=== PATIENT | male | born 1940 | race Caucasian/White ===

== ENCOUNTER 2016-11-23 14:42 | Inpatient (IN) | payer MEDICARE, OTHER ==
--- NOTE | ~2016-11-23 | DS ---
Discharge Summary [facility] [address] [facility] [place] [place]. [address] NAME: JOSÉ MIGUEL VILLALTA SR : 42 STATUS : DIS IN PAT#: [id number] AGE: 76 ADM/REG DATE : 11/23/16 MR#: [id number] REPORT SERV DATE: 11/26/16 DICTATED BY: RANDI RUVALCABA DATE: 11/25/16 REPORT STATUS : Draft TRANSCRIBED BY: MODL DATE: 11/25/16 ADMISSION DATE: 11/23/2016 DISCHARGE DATE: 11/25/2016 CONDITION ON DISCHARGE: Stable. DISPOSITION: Discharged to home. ADVICE ON DISCHARGE: To follow up with his industrial machine system technician, Dr. Dougherty, within the next two to three weeks, which the patient agrees to do. DIAGNOSES ON DISCHARGE: 1. Acute exacerbation of systolic and diastolic heart failure - resolved. 2. 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 3. Acute bronchitis - resolved - the patient will be taking three more days of azithromycin to clear this up. 4. Chronic obstructive pulmonary disease. Other diagnoses that are also stable at this time include: 1. A history of stroke that left the patient with no significant residual deficits. 2. History of diabetes, which is fairly well controlled on his home medications. He takes at least three oral antidiabetic medications at home. 3. Chronic kidney disease, stage III, which is stable at this time with a baseline creatinine of about 1.6. 4. Hypercholesterolemia, which is stable. 5. Coronary artery disease, status post coronary artery bypass graft - stable. 6. Hypertension, that is stable. BRIEF HOSPITAL COURSE: Mr. José Miguel Villalta is a 76-year-old male patient who was admitted with signs and symptoms as outlined in physical exam. Essentially, he was admitted with shortness of breath and admitted with a diagnosis of acute systolic congestive heart failure and also acute bronchitis/acute exacerbation of COPD. At this time, I would lean more towards the diagnosis of acute bronchitis. He was admitted with IV antibiotics and IV diuretic therapy, and with supportive and symptomatic care and above therapy, he significantly improved. He was started on diuretics and his shortness of breath improved tremendously. On the day of discharge, he is able to ambulate without shortness of breath or without any chest pain. He feels great and he wishes to go home. However, he is a candidate for long-term diuretic therapy and probably diuretics on a regular basis despite his kidney function. This is because he has been admitted with acute exacerbation of systolic heart failure multiple times now. Hence, he will be going home on Bumex, which I have started him as a new medication 1 mg in the morning and 0.5 mg at night or 1 mg p.o. q.a.m. and 0.5 mg p.o. q.p.m. I also have him on potassium. Discharge Summary [address] [place]. [address] NAME: JOSÉ MIGUEL VILLALTA : 42 STATUS : DIS IN PAT#: [id number] AGE: 76 ADM/REG DATE : 11/23/16 MR#: [id number] REPORT SERV DATE: 11/26/16 DICTATED BY: RANDI RUVALCABA DATE: 11/25/16 REPORT STATUS : Draft TRANSCRIBED BY: MICHAEL DATE: 11/25/16 He will be going home on the following medications. He will finish his current course of azithromycin by taking 250 mg once a day for the next three days and stop for the acute bronchitis. He will continue his Actos 30 mg once a day, Januvia 100 mg once a day, and Amaryl 8 mg p.o. once a day also as he has always been taking for his diabetes. He will continue taking aspirin 81 mg once a day and Coreg 3.125 mg p.o. twice a day, as always. He will continue taking Neurontin as before. He will also continue pravastatin 40 mg once a day as before. The new medication will be Bumex 1 mg in the morning and 0.5 mg at night and also potassium 10 mEq p.o. twice a day. I do have the following labs upon discharge on this patient. Most recently, his CBC shows a WBC count of 9.3, hemoglobin 11, hematocrit of 33.4, and platelet count of 183. His electrolyte profile shows sodium 140, potassium 4.1, BUN is 35, and creatinine is 1.8, which is pretty much his baseline. His brain natriuretic peptide is 1125 today. It was even higher than that, and on 11/23/2016, his admission BNP was 2131. Hence, this is a significant improvement for him. His blood cultures have come back negative and his chest x-ray has come back with no acute infiltrate. His urinalysis is normal. Echocardiogram as above shows ejection fraction of 40%, reflecting chronic systolic and diastolic heart failure. Lactate is 1.5 at this time. We did order a hemoglobin A1c on this gentleman and that has come back at 8.2, reflecting diabetes that is not under great control. The patient is aware of this. The patient is also aware of a low-salt diet. He states that he will work on this. He is advised to follow up with Dr. Dougherty, his industrial machine system technician, in the next two to three weeks for adjustment of his diuretics if need be. He can also be referred to kidney specialist or renal specialist or ward aide as an outpatient if his creatinine continues to climb later as an outpatient, but right now, he seems to be stable with chronic kidney disease, stage III with a creatinine level of about 1.7 to 1.8. He feels fine, and hence, he is being discharged today. I spent about 40 minutes in coordinating discharge care of this patient including face-to- face encounter and summarizing this discharge. RRA/MODL Randi Ruvalcaba M.D. / [id number] CC: Dai Campbell M.D.
--- NOTE | ~2016-11-23 | HP ---
History And Physical [facility] [id number] [place]. [address] NAME: ROHAN VILLALTA SR : 42 STATUS : ADM IN PAT#: [id number] AGE: 76 ADM/REG DATE : 11/23/16 MR#: [id number] REPORT SERV DATE: 11/24/16 DICTATED BY: REENA PERRY DATE: 11/23/16 REPORT STATUS : Draft TRANSCRIBED BY: MODL DATE: 11/23/16 DATE OF ADMISSION: 11/23/2016 CHIEF COMPLAINT: A 76-year-old male presenting with shortness of breath. HISTORY OF PRESENT ILLNESS: The patient's history was obtained through careful interview with patient and , coupled with review of [facility] and [facility] medical records. The patient states that for "a couple days" he has had increasing shortness of breath that has progressively become debilitating. He describes it as dyspnea on exertion and denies any orthopnea. He has felt extremely sleepy, fatigued, "worn out." Today, he tried to go to work but found that he could not even do his job and had to go home early. He describes a cough that is described as dry and nonproductive. It is associated with the bilateral chest discomfort at the base of his lungs, pleuritic in nature, sharp, exacerbated by coughing 2 to 3/10 severity. He describes increasing lower extremity edema, right greater than left which is typical for him. He has also noticed increasing bloating, swelling, and gassy feeling in his abdomen but without much discomfort. He states that the day prior to admission he went to see his primary care physician, was given a dose of steroids, Keflex, and an inhaler. Initially improved by that evening but then today just had worsening of his symptoms. Ever since starting the steroids, the patient has had uncontrolled blood sugars. His blood sugar this morning was over 300, where it is typically in the 100 range. No nausea or vomiting. No diarrhea. He has had fevers, chills, lightheadedness. No confusion. REVIEW OF SYSTEMS: Otherwise, a 14-point review of systems was obtained and was negative. PAST MEDICAL HISTORY: 1. Stroke. 2. Diabetes. 3. Coronary artery disease, status post CABG, seen by Dr. Solares. 4. Systolic congestive heart failure, ejection fraction 40%. 5. Elevated cholesterol. 6. Hypertension. 7. Chronic kidney disease, stage 3. Baseline creatinine of 1.3 to 1.6. PAST SURGICAL HISTORY: CABG in 2002. History And Physical [address] [address] NAME: ROHAN VILLALTA SR : 42 STATUS : ADM IN PAT#: [id number] AGE: 76 ADM/REG DATE : 11/23/16 MR#: [id number] REPORT SERV DATE: 11/24/16 DICTATED BY: REENA PERRY DATE: 11/23/16 REPORT STATUS : Draft TRANSCRIBED BY: MICHAEL DATE: 11/23/16 ALLERGIES: LYSOL AND PERFUME. SOCIAL HISTORY: Quit smoking in 2002. Does not drink any alcohol. He has been to his for 55 years. They live in [place], [place]. They have two children who live locally, two granddaughters, four grandsons, four great granddaughters. 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 FAMILY HISTORY: Diabetes and heart disease. CURRENT MEDICATIONS: Include aspirin 81 mg p.o. daily; Lasix, alternating doses of 20 and 40 mg every other day; Neurontin 900 mg p.o. t.i.d.; Amaryl 8 mg p.o. daily; multivitamin daily; Actos 30 mg at bedtime; potassium 20 mEq p.o. daily, Pravachol 40 mg p.o. daily; and Januvia 10 mg p.o. daily. PHYSICAL EXAMINATION: VITAL SIGNS: Temperature 98.4, pulse 82, blood pressure 106/55, respiratory rate 20, and O2 saturation 97% on room air. GENERAL: A pleasant, cooperative male. No significant distress, just very uncomfortable. HEENT: Pupils equal, round, and reactive to light. No conjunctival pallor. No scleral icterus. Nares are patent. Oropharynx is clear of obstruction. Moist mucous membranes. NECK: Trachea midline. No thyromegaly. LYMPH: No cervical lymphadenopathy. No supraclavicular lymphadenopathy. RESPIRATORY: The patient has dense wet rales on examination that predominate. They extend about the mid lung symmetrically. No dullness to percussion to suggest effusion. The patient also has scattered expiratory wheezes and upper respiratory rhonchi. I do appreciate what I believe is focal egophony in the left lower lung in particular. The patient has a labored respiratory effort. CARDIOVASCULAR: Regular rate and rhythm. No murmurs, rubs, or gallops. The patient does have pitting lower extremity edema. The right leg is slightly more than the left. ABDOMEN: Somewhat distended. No tympanic resonance on percussion. Nontender throughout though. No hepatosplenomegaly. DERMATOLOGICAL: Warm and dry extremities. No pallor. No cyanosis. PSYCHIATRIC: Normal affect. Good mood. Alert and oriented x3. LABORATORY DATA: White blood cell count 13.9, hemoglobin 11, hematocrit 34, and platelets 188. Sodium 137, potassium 5.1, chloride 99, bicarb 27, BUN 31, creatinine 2.07 from baseline creatinine of 1.3, glucose 401. Brain natriuretic peptide 2131. Troponin 0.07. INR 1.3. STUDIES: 1. Chest x-ray by my own evaluation shows a left lower lung patchy infiltrate of the right middle lung compared to old x-ray. 2. EKG by my own evaluation shows sinus rhythm, right bundle-branch block, premature ventricular contractions. History And Physical [address] [address] NAME: ROHAN VILLALTA : 42 STATUS : ADM IN [facility]#: [id number] AGE: 76 ADM/REG DATE : 11/23/16 MR#: [id number] REPORT SERV DATE: 11/24/16 DICTATED BY: REENA PERRY DATE: 11/23/16 REPORT STATUS : Draft TRANSCRIBED BY: MICHAEL DATE: 11/23/16 ASSESSMENT AND PLAN: 1. Systolic congestive heart failure exacerbation with elevated brain natriuretic peptide and evidence of volume overload. Ejection fraction of 40%. We will recheck an echocardiogram though. Place on IV diuretic. Place on an MARINE inhibitor and Coreg as tolerated but noted that patient has borderline hypertension. We will write parameters for these medications and monitor whether he is able to tolerate them. 2. Pneumonia, presumptive diagnosis. Place on IV antibiotics. Check blood cultures. 3. Chronic obstructive pulmonary disease exacerbation. Quit smoking in [address]. [address] on p.o. steroids and DuoNeb nebulizers. 4. Uncontrolled diabetes exacerbated by steroids. Try Levemir and sliding scale insulin while on steroids. 5. Acute kidney injury on chronic kidney disease, stage III. Check urinalysis. Check postvoid residual. Monitor closely. KPL/MODL Reena Perry M.D. / [id number] CC: MD Magdaleno Combs M.D.
[~2016-11-23 14:42] MED LIST: AMARYL4 PO; CENTRUM PO; CORDARONE PO; COREG12 PO; COREG25 PO; FLONASE NAS; FLOVENT DISK250 MCG INH; FORTAMET1000 MG PO; GLUCPH PO; GLUCXL10 PO; HALF81 PO; JANUVIA100 MG PO; JANUVIA50 PO; KLOR-CON 1010 MEQ PO; L20 PO; L40 PO; MULTIPLE VIT PO; MYLANTA PO; NEUR300 PO; PACERONE200 MG PO; PRAVACHOL40 MG PO; PROAIR HFA INH; REFRESH OPH
[2016-11-23 15:10] LABS: BASOPHILS 0 %; EOSINOPHILS 0 %; HEMATOCRIT 33.8 % (40.0-51.0); HEMOGLOBIN 11.1 g/dL (13.6-17.8); IMMATURE GRANULOCYTES 0.2 %; IMMATURE GRANULOCYTES ABSOLUTE 0.03 10/3/uL (0.0-0.11); LYMPHOCYTES 5.2 %; LYMPHOCYTES ABSOLUTE 0.72 10/3/uL (0.67-4.30); MEAN CORPUS HGB CONC 32.8 g/dL (32.0-36.0); MEAN CORPUSCULAR VOLUME 85.1 fL (80-100); MEAN PLATELET VOLUME 10.9 fL (9.2-13.0); MONOCYTES 2.5 %; MONOCYTES ABSOLUTE 0.35 10/3/uL (0.21-1.20); NEUTROPHILS 92.1 %; NEUTROPHILS ABSOLUTE 12.83 10/3/uL (2.02-8.40); PLATELET COUNT 188 10/3/uL (150-400); RBC DISTRIBUTION WIDTH 15.5 % (12.0-16.0); RED CELL COUNT 3.97 10/6/uL (4.7-6.1)
[2016-11-23 15:11] LABS: ER CBC TAT 0 Hrs 10 Mins; MANUAL DIFF NO %; WHITE BLOOD CELLS 13.9 10/3/uL (4.5-10.5)
[2016-11-23 15:25] LABS: CALCIUM, SERUM 8.7 MG/DL (8.5-10.4); CHLORIDE, SERUM 99 MMOL/L (96-112); CO2 (CARBON DIOXIDE) 27 MMOL/L (24-34); POTASSIUM, SERUM 5.1 MMOL/L (3.5-5.3); SODIUM, SERUM 137 MMOL/L (135-148)
[2016-11-23 15:26] LABS: INTERNATIONAL NORMAL RATI 1.3 UNITS (-); PARTIAL THROMBO TIME 28.6 SEC (22.5-37.2)
[2016-11-23 15:27] LABS: BUN (BLOOD UREA NITROGEN) 31 MG/DL (6-23); CHEST PAIN PROFILE TAT 0 Hrs 26 Mins; CREATININE 2.07 MG/DL (0.70-1.30); GFR AFRICAN AMERICAN 35 ML/MIN (>=60); GFR NON AFRICAN AMERICAN 31 ML/MIN (>=60); GLUCOSE, SERUM 401 MG/DL (60-99); TROPONIN I 0.05 NG/ML (<0.05)
[2016-11-23] MEDS ORDERED: ASAB PO (18:17)
[2016-11-23] MEDS ORDERED: MULTIVITAMI1 PO (18:17)
[2016-11-23] MEDS ORDERED: NEUR300 PO (18:20)
[2016-11-23] MEDS ORDERED: L40 PO (18:21)
[2016-11-23] MEDS ORDERED: L20 PO (18:21)
[2016-11-23] MEDS ORDERED: AMARYL4 PO (18:22)
[2016-11-23] MEDS ORDERED: K-TABS10 MEQ PO (18:22)
[2016-11-23] MEDS ORDERED: JANUVIA100 MG PO (18:22)
[2016-11-23] MEDS ORDERED: ACTOS30 PO (18:22)
[2016-11-23] MEDS ORDERED: PRAVACHOL40 MG PO (18:23)
[2016-11-24 05:04] LABS: BASOPHILS 0 %; EOSINOPHILS 0 %; HEMOGLOBIN 10.6 g/dL (13.6-17.8); IMMATURE GRANULOCYTES 0.1 %; IMMATURE GRANULOCYTES ABSOLUTE 0.01 10/3/uL (0.0-0.11); LYMPHOCYTES 5.8 %; MEAN CORPUS HGB CONC 33.1 g/dL (32.0-36.0); MEAN CORPUSCULAR VOLUME 84.7 fL (80-100); MEAN PLATELET VOLUME 11.2 fL (9.2-13.0); MONOCYTES 4.8 %; NEUTROPHILS 89.3 %; NEUTROPHILS ABSOLUTE 9.24 10/3/uL (2.02-8.40); PLATELET COUNT 185 10/3/uL (150-400); RBC DISTRIBUTION WIDTH 15.8 % (12.0-16.0); RED CELL COUNT 3.78 10/6/uL (4.7-6.1); WHITE BLOOD CELLS 10.4 10/3/uL (4.5-10.5)
[2016-11-24 05:10] LABS: MANUAL DIFF NO %
[2016-11-24 05:25] LABS: INTERNATIONAL NORMAL RATI 1.3 UNITS (-); PARTIAL THROMBO TIME 28.5 SEC (22.5-37.2); PROTIME (NOT ORD) 15.6 SEC (12.0-14.5)
[2016-11-24 05:27] LABS: A/G RATIO 1.1 (0.7-1.9); ALBUMIN 3.6 G/DL (3.5-5.0); ALKALINE PHOSPHATASE 61 U/L (45-117); BUN (BLOOD UREA NITROGEN) 30 MG/DL (6-23); CALCIUM, SERUM 8.4 MG/DL (8.5-10.4); CHLORIDE, SERUM 101 MMOL/L (96-112); CO2 (CARBON DIOXIDE) 28 MMOL/L (24-34); CREATININE 1.91 MG/DL (0.70-1.30); GFR AFRICAN AMERICAN 39 ML/MIN (>=60); GFR NON AFRICAN AMERICAN 34 ML/MIN (>=60); GLOBULIN 3.2 G/DL (2.5-4.1); POTASSIUM, SERUM 4.6 MMOL/L (3.5-5.3); SGOT(AST) 16 U/L (5-40); SGPT(ALT) 26 U/L (5-65); SODIUM, SERUM 141 MMOL/L (135-148); TOTAL PROTEIN 6.8 G/DL (6.0-8.5)
[2016-11-24 05:35] LABS: GLUCOSE, SERUM 258 MG/DL (60-99); TOTAL BILIRUBIN 0.6 MG/DL (0-1.2)
[2016-11-24 05:58] LABS: PROCALCITONIN <0.05 ng/mL (<0.5)
[2016-11-24 07:46] LABS: ASCORBIC ACID (UR NOT ORDER) NEG (NEG); BILIRUBIN, URINE NEGATIVE (NEG); KETONE, URINE NEGATIVE (NEG); LEUKOCYTE ESTERASE(NOT OR NEG (NEG); WBC (NOT ORDERED) (RFLEX) < 1 (0-5)
[2016-11-24 11:20] LABS: GLYCOHEMOGLOBIN (HbA1c) 8.2 % (4.7-6.1)
[2016-11-25 06:10] LABS: BASOPHILS 0.1 %; BASOPHILS ABSOLUTE 0.01 10/3/uL (0.0-0.16); EOSINOPHILS 0.2 %; EOSINOPHILS ABSOLUTE 0.02 10/3/uL (0.0-0.53); HEMATOCRIT 33.4 % (40.0-51.0); IMMATURE GRANULOCYTES 0.3 %; IMMATURE GRANULOCYTES ABSOLUTE 0.03 10/3/uL (0.0-0.11); LYMPHOCYTES ABSOLUTE 0.84 10/3/uL (0.67-4.30); MEAN CORPUS HGB CONC 32.9 g/dL (32.0-36.0); MEAN CORPUSCULAR HEMOGLOB 27.9 pg (26.0-34.0); MEAN CORPUSCULAR VOLUME 84.8 fL (80-100); MONOCYTES 7.1 %; MONOCYTES ABSOLUTE 0.66 10/3/uL (0.21-1.20); NEUTROPHILS 83.3 %; NEUTROPHILS ABSOLUTE 7.73 10/3/uL (2.02-8.40); PLATELET COUNT 183 10/3/uL (150-400); RBC DISTRIBUTION WIDTH 15.7 % (12.0-16.0); RED CELL COUNT 3.94 10/6/uL (4.7-6.1); WHITE BLOOD CELLS 9.3 10/3/uL (4.5-10.5)
[2016-11-25 06:13] LABS: MANUAL DIFF NO %
[2016-11-25 06:24] LABS: CALCIUM, SERUM 8.8 MG/DL (8.5-10.4); CHLORIDE, SERUM 101 MMOL/L (96-112); CO2 (CARBON DIOXIDE) 30 MMOL/L (24-34); GFR AFRICAN AMERICAN 42 ML/MIN (>=60); GFR NON AFRICAN AMERICAN 36 ML/MIN (>=60); POTASSIUM, SERUM 4.1 MMOL/L (3.5-5.3); SODIUM, SERUM 140 MMOL/L (135-148)
[2016-11-25 06:25] LABS: BUN (BLOOD UREA NITROGEN) 35 MG/DL (6-23); GLUCOSE, SERUM 128 MG/DL (60-99)
[2016-11-25] MEDS ORDERED: BUM1 PO (10:33)
[2016-11-25] MEDS ORDERED: ZITH250 PO (10:40)
[2016-11-25] MEDS ORDERED: DUONEB INH (10:41)
== END 2016-11-25 12:20 | disposition home or self-care (01) | DRG 291 ==
LOC: ER 14:42 → 6NO 19:29
PROVIDERS: Hospitalist; Internal Medicine
DX: I13.0 Hypertensive heart and chronic kidney disease with heart failure and stage 1 through stage 4 chronic kidney disease, or unspecified chronic kidney disease (principal); I50.43 Acute on chronic combined systolic (congestive) and diastolic (congestive) heart failure; N17.9 Acute kidney failure, unspecified; E11.22 Type 2 diabetes mellitus with diabetic chronic kidney disease; J44.0 Chronic obstructive pulmonary disease with (acute) lower respiratory infection; E11.65 Type 2 diabetes mellitus with hyperglycemia; N18.3 Chronic kidney disease, stage 3 (moderate); J20.9 Acute bronchitis, unspecified; E78.00 Pure hypercholesterolemia, unspecified; T38.0X5A Adverse effect of glucocorticoids and synthetic analogues, initial encounter; Z91.048 Other nonmedicinal substance allergy status; Z79.84 Long term (current) use of oral hypoglycemic drugs; Z86.73 Personal history of transient ischemic attack (TIA), and cerebral infarction without residual deficits
CPT/HCPCS: 71010; 71020; 80048; 80053; 81001; 82962; 83036; 83605; 83735; 83880; 84145; 84443; 84484; 85025; 85610; 85730; 87040; 93005; 94640; 96374; 99285; A9270-GY; C8929; J0456; Q9957